=== PATIENT | male | born 1950 | race Caucasian/White ===

== ENCOUNTER 2021-11-29 12:38 | Inpatient (IN) | payer OTHER, SELFPAY ==
[2021-11-29] VITALS (60 sets, daily range): BP systolic 90–144; BP diastolic 50–113; PULSE 65–85; RESP 10–34; TEMP 35.8–36.6; O2SAT 91–98; BMI 41.7; BMI 43.0
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
[2021-11-29 12:55] LABS: Add Manual Diff / Slide Review NO; Basophils Absolute Auto 200 /uL (0-100); Basophils Percent Auto 1.3 % (0-2); Eosinophils Absolute Auto 900 /uL (0-450); Eosinophils Percent Auto 7.1 % (2-4); Hematocrit 47.5 % (41-53); Hemoglobin 16.2 g/dL (13.5-17.5); Lymphocytes Absolute Auto 4200 /uL (1100-4500); Lymphocytes Percent Auto 33.2 % (25-40); Mean Corpuscular HGB Conc 34.1 % (30-36); Mean Corpuscular Hemoglobin 29.7 PG (26-34); Mean Corpuscular Volume 87.3 fL (80-100); Monocytes Absolute Auto 700 /uL (0-900); Monocytes Percent Auto 5.7 % (3-14); Neutrophils Absolute Auto 6700 /uL (1500-7000); Neutrophils Percent Auto 52.7 % (50-75); Platelet Count 316 X10^3/uL (150-400); Red Blood Cell Count 5.44 X10^6/uL (4.5-5.9); Red Cell Distribution Width 14.8 % (11.6-14.8); White Blood Cell Count 12.7 X10^3/uL (4.5-11.0)
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
[2021-11-29 13:06] LABS: Prothrombin Time 11.7 SECONDS (10.1-12.7)
[2021-11-29 13:08] LABS: PTT Partial Thromboplastin Tim 27 SECONDS (26-36)
[2021-11-29 13:12] LABS: Alanine Aminotransferase 36 IU/L (<50); Albumin 4.5 g/dL (3.5-5.0); Albumin Globulin Ratio 1.5 (1.0-2.8); Alkaline Phosphatase 59 U/L (38-126); Aspartate Aminotransferase 30 IU/L (17-59); BUN Creatinine Ratio 16.4 (6-22); Bilirubin Total 1.1 mg/dL (0.2-1.3); Blood Urea Nitrogen 24 mg/dL (9-20); Calcium 9.4 mg/dL (8.4-10.2); Carbon Dioxide 22 mmol/L (22-32); Chloride 104 mmol/L (98-107); Creatine Kinase 83 U/L (55-170); Estimated Glomerular Filt Rate 50 mL/min (>60); Ethanol (ETOH) < 10 mg/dL; Globulin 3.1 g/dL (1.7-4.1); Glucose 159 mg/dL (80-110); HEMOLYSIS < 15 (0-50); Lipase 131 U/L (23-300); Sodium 140 mmol/L (137-145); Total Protein 7.6 g/dL (6.3-8.2)
[2021-11-29 13:13] LABS: COVID19 -Nasal RAPID Negative (Negative)
[2021-11-29 13:20] LABS: NT-proBNP (BNP-Adult 18+) 87 pg/mL (<125)
[2021-11-29 13:22] LABS: Troponin I < 0.012 ng/mL (0.01-0.034)
[2021-11-29] MEDS: SODIUM CHLORIDE 0.9% 1,000 ML 150 ML IV (13:45)
[2021-11-29] MEDS: SODIUM CHLORIDE 0.9% 500 ML 1000 ML IV (14:00)
--- NOTE | 2021-11-29 14:14 | PC.NURSE ---
Pt's friend/contact Myla Isabel: [phone]
[2021-11-29] MEDS: TRAMADOL 50 MG TABLET 100 MG PO (14:20)
[2021-11-29 14:48] LABS: Reflexed Lactate in 2 Hours Y
[2021-11-29 14:53] LABS: Lactate (Lactic Acid) 1.8 mmol/L (0.7-2.1)
[2021-11-29 15:05] LABS: Troponin I < 0.012 ng/mL (0.01-0.034)
[2021-11-29 16:16] LABS: Appearance Urine UA CLEAR; Bilirubin Urine UA NEGATIVE (NEGATIVE); Color Urine UA YELLOW; Glucose Urine UA NEGATIVE (Negative); Ketones Urine UA NEGATIVE (NEGATIVE); Leukocyte Esterase Urine UA NEGATIVE (NEGATIVE); Nitrite Urine UA NEGATIVE (Negative); Occult Blood Urine UA TRACE-INTACT (Negative); Protein Urine UA NEGATIVE (Negative); Urobilinogen Urine UA 0.2 E.U./dL (0.2)
[2021-11-29 16:19] LABS: UR Morphine/Opiate cutoff 300 Negative (Negative); Ur Creatinine Normal (Normal); Ur Specific Gravity Normal (Normal); Urine Amphetamines Negative (Negative); Urine Barbiturates Negative (Negative); Urine Benzodiazepines Negative (Negative); Urine Cocaine Negative (Negative); Urine MDMA Negative (Negative); Urine Methadone Negative (Negative); Urine Methamphetamines Negative (Negative); Urine Oxycodone Negative (Negative); Urine Phencyclidine Negative (Negative); Urine Tricyclic Antidepressant Negative (Negative); Urine pH Normal (Normal)
--- NOTE | 2021-11-29 16:20 | PC.NURSE ---
Addendum entered by Zulay Suresh R.N. 11/29/21 16:25: Pt given yogurt, cheese, and sandwich to eat. Pt drinking water without issue. Original Note: report rec'd from RICHARD Walter. Pt reports feeling better. given paper scrubs and OOB to ambulate to bathroom with standby assist. Pt ambulated without issue, urine received and sent to lab. Pt arrived back to room, ride called, IV's removed and pt ready for DC after reassessment by Dr Shen. Pt states he was starting to get dizzy and feel diaphoretic. Assisted to lay supine and vitals taken, BP 133/73. HR 76. Glucose 118. Dr Shen made aware. No new orders at this time. Attempting new IV insertion.
[2021-11-29 16:49] LABS: RBC Urine 0-1/HPF (0-5/HPF)
[2021-11-29 16:50] LABS: Bacteria Urine None Seen; Culture Indicated Urine Cult Not Indicated; Squamous Epithelial Cell Urine 0-1 /HPF (0-5/HPF); WBC Urine None Seen (0-5/HPF)
[2021-11-29] MEDS: MORPHINE 2 MG/ML INJ IV (17:15)
[2021-11-29] MEDS: SODIUM CHLORIDE 0.9% 1,000 ML 100 ML IV (21:19)
[2021-11-29] MEDS: TRAMADOL 50 MG TABLET PO (21:23)
[2021-11-29 21:32] LABS: Magnesium 2.4 mg/dL (1.6-2.3)
[2021-11-29 21:37] LABS: Troponin I < 0.012 ng/mL (0.01-0.034)
[2021-11-29 21:46] LABS: Hemoglobin A1C% w Est Avg Glu 6.4 % (4.0-6.0)
[2021-11-30] VITALS (9 sets, daily range): BP systolic 133–149; BP diastolic 79–87; PULSE 60–85; RESP 16–19; TEMP 36–36.9; O2SAT 93–97
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
[2021-11-30 02:58] LABS: Add Manual Diff / Slide Review NO; Basophils Absolute Auto 0 /uL (0-100); Basophils Percent Auto 0.4 % (0-2); Eosinophils Absolute Auto 600 /uL (0-450); Eosinophils Percent Auto 5.4 % (2-4); Hematocrit 44.3 % (41-53); Hemoglobin 14.8 g/dL (13.5-17.5); Lymphocytes Absolute Auto 2900 /uL (1100-4500); Mean Corpuscular HGB Conc 33.3 % (30-36); Mean Corpuscular Hemoglobin 29.5 PG (26-34); Mean Corpuscular Volume 88.4 fL (80-100); Monocytes Absolute Auto 900 /uL (0-900); Monocytes Percent Auto 7.8 % (3-14); Neutrophils Absolute Auto 7400 /uL (1500-7000); Neutrophils Percent Auto 62.4 % (50-75); Platelet Count 247 X10^3/uL (150-400); Red Blood Cell Count 5.01 X10^6/uL (4.5-5.9); Red Cell Distribution Width 14.7 % (11.6-14.8); White Blood Cell Count 11.9 X10^3/uL (4.5-11.0)
[2021-11-30 03:06] LABS: Alanine Aminotransferase 34 IU/L (<50); Albumin 3.9 g/dL (3.5-5.0); Albumin Globulin Ratio 1.5 (1.0-2.8); Alkaline Phosphatase 41 U/L (38-126); Aspartate Aminotransferase 26 IU/L (17-59); BUN Creatinine Ratio 25.8 (6-22); Bilirubin Total 0.8 mg/dL (0.2-1.3); Blood Urea Nitrogen 25 mg/dL (9-20); Calcium 8.7 mg/dL (8.4-10.2); Carbon Dioxide 27 mmol/L (22-32); Chloride 104 mmol/L (98-107); Estimated Glomerular Filt Rate > 60 mL/min (>60); Globulin 2.6 g/dL (1.7-4.1); Glucose 113 mg/dL (80-110); HEMOLYSIS < 15 (0-50); Magnesium 2.4 mg/dL (1.6-2.3); Potassium 3.6 mmol/L (3.4-5.1); Sodium 138 mmol/L (137-145); Total Protein 6.5 g/dL (6.3-8.2)
[2021-11-30 03:18] LABS: Troponin I < 0.012 ng/mL (0.01-0.034)
[2021-11-30] MEDS: SODIUM CHLORIDE 0.9% 1,000 ML 100 ML IV (07:33)
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
--- NOTE | 2021-11-30 12:51 | DI.ECHO.S_ITS ---
[facility] +---------+ : : [address] : : : : [id number] : : : : Phone: [phone] Echocardiogram Report + + :Name: OSMAR LASSITER Study Date: 12/01/2021 Height: 70 in : :[facility] ReadingLocation: Weight: 299 lb : : Gender: Male BSA: 2.5 m2 : :: 1950 Age: 71 yrs BP: 142/79 mmHg: :Reason For Study: SYNCOPE WORKUP : :Ordering Physician: DENIA, : :PETE ALEGRE Performed By: Tona Dubon : :Referring: PETE LOZA MD : + + Interpretation Summary The left ventricle is normal in size and wall thickness. Left ventricular systolic function appears normal without focal wall motion abnormalities. The ejection fraction is estimated to be 60-65%. Diastolic parameters suggest a relaxation abnormality of the left ventricle, consistent with probable normal filling pressures. The right ventricle is normal in size and function. Both atria are normal in size. There is no significant valvular heart disease. The aortic root is normal size. Procedure: A two-dimensional transthoracic echocardiogram with color flow and Doppler was performed. The study quality was technically adequate. A contrast injection of Definity was performed to improve assessment of LV function. There is no prior echocardiogram noted for this patient. The patient was in sinus bradycardia with heart rates between 52-63 bpm during the exam. Left Ventricle: The left ventricle is normal in size and wall thickness. Left ventricular systolic function appears normal without focal wall motion abnormalities. The ejection fraction is estimated to be 60-65%. Diastolic parameters suggest a relaxation abnormality of the left ventricle, consistent with probable normal filling pressures. Right Ventricle: The right ventricle is normal in size and function. Atria: Both atria are normal in size. There is no Doppler evidence for an interatrial shunt. Mitral Valve: The mitral valve is normal in structure and function. There is trace mitral regurgitation. Aortic Valve: The aortic valve is trileaflet. The aortic valve opens well. There is no aortic valve stenosis. There is trace aortic regurgitation. Tricuspid Valve: The tricuspid valve is normal in structure and function. There is mild tricuspid regurgitation. Pulmonic Valve: The pulmonic valve leaflets are thin and pliable; valve motion is normal. There is trace pulmonic regurgitation. There is no significant valvular heart disease. Great Vessels: The aortic root is normal size. The dimensions of the ascending aorta are normal. The inferior vena cava was not well visualized. Pericardium/ Pleura There is no pericardial effusion. There is no pleural effusion. MMode/2D Measurements & Calculations LVIDd: 4.0 cm LVOT diam: 2.0 cm LVIDs: 2.9 cm Ao root diam: 3.4 cm FS: 27.9 % asc Aorta Diam: 3.5 cm IVSd: 0.85 cm Ao Arch Diam (Prox Trans): 3.3 cm LVPWd: 1.1 cm LV choi. diameter/BSA (cm/m^2): 1.6 LV sys. diameter/BSA (cm/m^2): 1.2 LA A2 area: 17.6 cm2 RA long axis: 5.8 cm LA A4 area: 16.3 cm2 RA area: 17.9 cm2 LA length (vol): 4.5 cm RA vol: 46.8 ml LA vol: 53.8 ml RA : 18.9 ml/m2 LA vol index: 21.7 ml/m2 RVD1 (basal): 3.9 cm RVD2 (mid): 3.5 cm TAPSE: 1.8 cm Doppler Measurements & Calculations Ao V2 max: 107.7 cm/sec LVOT Max Brian: 91.7 cm/sec Ao V2 mean: 74.6 cm/sec LV V1 max P.4 mmHg Ao max P.6 mmHg LV V1 VTI: 22.4 cm Ao mean P.5 mmHg CYDNEY(I,D): 2.9 cm2 Ao V2 VTI: 24.4 cm CYDNEY(V,D): 2.7 cm2 sev ratio: 0.92 CYDNEY indexed to BSA (cm^2/m^2): 1.2 MV E max brian: 63.2 cm/sec TR max brian: 243.1 cm/sec MV A max brian: 89.9 cm/sec TR max P.6 mmHg MV E/A: 0.70 PA pr(Accel): 25.9 mmHg Med Peak E' Brian: 6.0 cm/sec E/E' med: 10.5 Lat Peak E' Brian: 7.3 cm/sec E/E' lat: 8.7 E/e' average: 9.6 MV dec time: 0.24 sec SV(LVOT): 71.4 ml Reading Physician:10:10 AM
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
[2021-11-30] MEDS: POTASSIUM CHLORIDE 20 MEQ TAB 40 MEQ PO (21:38)
[2021-11-30] MEDS: ENOXAPARIN 40 MG/0.4 ML SYRINGE SUBCUT (21:38)
[2021-11-30] MEDS: SODIUM CHLORIDE 0.9% FLUSH 10 ML IV (21:42)
[2021-11-30] MEDS: allopurinoL 100 MG TABLET PO (22:02)
[2021-11-30] MEDS: ACETAMINOPHEN 325 MG TABLET 650 MG PO (23:11)
[2021-12-01] VITALS (23 sets, daily range): BP systolic 110–143; BP diastolic 58–83; PULSE 55–89; RESP 16–30; TEMP 36.2–36.9; O2SAT 92–96
[2021-12-01 05:57] LABS: Add Manual Diff / Slide Review NO; Basophils Absolute Auto 100 /uL (0-100); Basophils Percent Auto 1.5 % (0-2); Eosinophils Absolute Auto 1000 /uL (0-450); Eosinophils Percent Auto 10.1 % (2-4); Hematocrit 43.1 % (41-53); Hemoglobin 14.7 g/dL (13.5-17.5); Lymphocytes Absolute Auto 3200 /uL (1100-4500); Lymphocytes Percent Auto 33.3 % (25-40); Mean Corpuscular HGB Conc 34.1 % (30-36); Monocytes Absolute Auto 600 /uL (0-900); Monocytes Percent Auto 6.6 % (3-14); Neutrophils Absolute Auto 4700 /uL (1500-7000); Neutrophils Percent Auto 48.5 % (50-75); Platelet Count 227 X10^3/uL (150-400); Red Cell Distribution Width 14.6 % (11.6-14.8); White Blood Cell Count 9.6 X10^3/uL (4.5-11.0)
[2021-12-01 06:07] LABS: Chloride 104 mmol/L (98-107); HEMOLYSIS < 15 (0-50)
[2021-12-01 06:09] LABS: Alanine Aminotransferase 31 IU/L (<50); Albumin 3.6 g/dL (3.5-5.0); Albumin Globulin Ratio 1.3 (1.0-2.8); Alkaline Phosphatase 46 U/L (38-126); Aspartate Aminotransferase 25 IU/L (17-59); BUN Creatinine Ratio 22.2 (6-22); Bilirubin Total 0.6 mg/dL (0.2-1.3); Blood Urea Nitrogen 22 mg/dL (9-20); Calcium 8.8 mg/dL (8.4-10.2); Carbon Dioxide 27 mmol/L (22-32); Estimated Glomerular Filt Rate > 60 mL/min (>60); Globulin 2.8 g/dL (1.7-4.1); Glucose 109 mg/dL (80-110); Magnesium 2.1 mg/dL (1.6-2.3); Potassium 4.3 mmol/L (3.4-5.1); Sodium 137 mmol/L (137-145); Total Protein 6.4 g/dL (6.3-8.2)
[2021-12-01] MEDS: ACETAMINOPHEN 325 MG TABLET 650 MG PO (06:44)
[2021-12-01] MEDS: ASPIRIN EC 81 MG TABLET PO (09:25)
[2021-12-01] MEDS: SODIUM CHLORIDE 0.9% FLUSH 10 ML IV (09:25)
[2021-12-01] MEDS: allopurinoL 100 MG TABLET PO (09:25)
--- NOTE | 2021-12-01 10:46 | CM.DPC ---
DCP Cont: Per RN Coordinator, pt needing transfer to higher level of care due to pt needing a pacemaker. DCP available if any assistance is needed. Rand Wright, RN/DCP
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
[2021-12-01] MEDS: AMIODARONE 150 MG/100 ML 600 MG IV (16:29)
[2021-12-01] MEDS: AMIODARONE 360 MG/200 ML PIGGYBACK 33.333 MG IV (16:30)
[2021-12-01] MEDS: SODIUM CHLORIDE 0.9% 250 ML 21 ML IV (16:39)
--- NOTE | 2021-12-01 16:51 | PC.NURSE ---
1615 Pt moved from room 222 to room 228 in ICU to be placed on Amiodarone gtt and monitored closely. VSS, A/Ox 4, oriented to room and call light system. Will continue to monitor
[2021-12-01] MEDS: ENOXAPARIN 40 MG/0.4 ML SYRINGE SUBCUT (20:17)
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
[2021-12-01] MEDS: AMIODARONE 540 MG/300 ML PIGGYBACK 16.7 MG IV (22:34)
[2021-12-02] VITALS (21 sets, daily range): BP systolic 110–137; BP diastolic 58–84; PULSE 50–80; RESP 13–27; TEMP 36.5–36.9; O2SAT 92–99
[2021-12-02] MEDS: SODIUM CHLORIDE 0.9% 250 ML 21 ML IV (04:58)
--- NOTE | 2021-12-02 05:57 | PC.NURSE ---
Patient has been resting in bed most of the shift. Up a couple of times to the bathroom, and also uses the urinal. Patient on final loading dose of Amiodearone 540mg/300ml running at 16.7ml/hr. No runs of Vtech noted during night. Patient has been NSR/NSB w/rest heart rate down to mid 40s at times. Patient has denied any chest discomfort, feeling dizzy or lightheaded. Patient has been A&O, calm and cooperative.
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
[2021-12-02] MEDS: allopurinoL 100 MG TABLET PO (08:59)
[2021-12-02] MEDS: ASPIRIN EC 81 MG TABLET PO (08:59)
[2021-12-02] MEDS: lisinopriL 10 MG TABLET PO (08:59)
[2021-12-02] MEDS: AMIODARONE 200 MG TABLET 400 MG PO (09:00)
[2021-12-02] MEDS: ENOXAPARIN 40 MG/0.4 ML SYRINGE SUBCUT (09:00)
[2021-12-02] MEDS: SODIUM CHLORIDE 0.9% FLUSH 10 ML IV (09:07)
--- NOTE | 2021-12-02 09:35 | PM.PN.EICU ---
Subjective Subjective IF CAMERA ACTIVATED, patient seen via real-time interactive audiovisual communication: Camera activated Date Patient Seen: 12/02/21 Consent obtained for tele-ordnance equipment worker care: Yes Patient Location: ICU Provider location (State): [place] Other participants/roles: RICHARD Cottrell Interval history: No runs of VT since he was placed on amiodarone infusion. Had an episode of asymptomatic bradycardia to the 40s overnight. On amiodarone infusion and started on oral amiodarone. Awaiting for transfer to tertiary care for further cardiac evaluation. Current Medications Current Medications Medications: Home Medications allopurinol 100 mg tablet 100 mg PO DAILY 11/29/21 [History Confirmed 11/29/21] aspirin 81 mg capsule 81 mg PO DAILY 11/29/21 [History Confirmed 11/29/21] lisinopril 10 mg-hydrochlorothiazide 12.5 mg tablet 1 tab PO DAILY 11/29/21 [History Confirmed 11/29/21] metformin 500 mg tablet 500 mg PO DAILY 11/29/21 [History Confirmed 11/29/21] Visit Medications (administered) Generic Name Dose Route Start Last Admin Trade Name Freq PRN Reason Stop Dose Admin Acetaminophen 650 mg 11/29/21 20:37 12/01/21 06:44 Acetaminophen 325 Mg Tablet PO 650 mg Q6HR PRN Administration Fever/Mild Pain (1-3) Allopurinol 100 mg 11/30/21 22:00 12/02/21 08:59 Allopurinol 100 Mg Tablet PO 100 mg DAILY TREVON Administration Amiodarone HCl 400 mg 12/02/21 09:00 12/02/21 09:00 Amiodarone 200 Mg Tablet PO 12/08/21 21:01 400 mg BID TREVON Administration Aspirin 81 mg 12/01/21 09:00 12/02/21 08:59 Aspirin Ec 81 Mg Tablet PO 81 mg DAILY TREVON Administration Enoxaparin Sodium 40 mg 11/30/21 09:00 12/02/21 09:00 Enoxaparin 40 Mg/0.4 Ml Syringe SUBCUT 40 mg BID TREVON Administration Amiodarone HCl/Dextrose 540 mg in 300 mls @ 16.7 mls/hr 12/01/21 20:10 12/01/21 22:34 Nexterone IV 12/02/21 14:08 16.7 mls/hr CONT TREVON Administration Protocol Sodium Chloride 250 mls @ 21 mls/hr 12/01/21 16:19 12/02/21 04:58 Normal Saline 0.9% IV 21 mls/hr Q24H PRN Administration Flush Insulin Human Lispro 0 unit 11/30/21 07:45 12/02/21 07:24 Insulin Lispro 100 Unit/Ml 3ml Vial SUBCUT Not Given ACHS TREVON Protocol Lisinopril 10 mg 12/01/21 09:00 12/02/21 08:59 Lisinopril 10 Mg Tablet PO 10 mg DAILY TREVON Administration Sodium Chloride 10 ml 11/30/21 21:00 12/02/21 09:07 Sodium Chloride 0.9% Flush IV 10 ml BID TREVON Administration Tramadol HCl 50 mg 11/29/21 20:37 11/29/21 21:23 Tramadol 50 Mg Tablet PO 50 mg Q4H PRN Administration Pain, Moderate (4-6) Objective Labs Result Diagrams: 12/01/21 05:23 12/01/21 05:23 Labs: Laboratory Results - last 24 hr 11/29/21 16:00 U Marijuana (THC) Screen TNP Exam Vital Signs (past 8 hours): - 12/02/21 03:07 12/02/21 04:00 12/02/21 08:00 Temperature 97.7 F 98.5 F Pulse Rate 58 L 57 L Respiratory Rate 15 13 Blood Pressure 131/76 137/74 Pulse Oximetry 97 96 97 Oxygen Delivery Method Room Air Oxygen Flow Rate 0 12/02/21 08:59 Temperature Pulse Rate 75 Respiratory Rate Blood Pressure 137/74 Pulse Oximetry Oxygen Delivery Method Oxygen Flow Rate Oxygen Delivery Method Room Air Oxygen Flow Rate 0 Quality TeleICU VTE Deep Vein Thrombosis/Pulmonary Embolism Present on Admission: No Assessment & Plan Assessment & Plan narrative: NEURO: -- Seek early mobility RESP: -- On room air -- Encourage IS and OOB CVS: # Gabriel-tachy syndrome -- Per report patient had multiple runs of VT and developed bradycardia overnight -- Pacer pads in place -- On amiodarone infusion -- Pending transfer to tertiary care for EP evlauation for potential pacemaker and ICD placement -- High lytes goal -- Goal Mg > 2, K>4, and phos >3 ENDO: # DM -- On ISS -- Goal BS < 180 D/w RN Ronit at bedside. Time Spent With Patient Critical Care time: I spent a total of [32] minutes of critical care time on this patient's care today; this time is exclusive of procedural time.
[2021-12-02 10:16] LABS: Add Manual Diff / Slide Review NO; Basophils Absolute Auto 100 /uL (0-100); Basophils Percent Auto 0.8 % (0-2); Eosinophils Absolute Auto 800 /uL (0-450); Eosinophils Percent Auto 7.6 % (2-4); Hematocrit 46.6 % (41-53); Hemoglobin 16.1 g/dL (13.5-17.5); Lymphocytes Absolute Auto 2300 /uL (1100-4500); Lymphocytes Percent Auto 23.2 % (25-40); Mean Corpuscular HGB Conc 34.6 % (30-36); Mean Corpuscular Hemoglobin 30.3 PG (26-34); Mean Corpuscular Volume 87.6 fL (80-100); Monocytes Absolute Auto 400 /uL (0-900); Monocytes Percent Auto 3.8 % (3-14); Neutrophils Absolute Auto 6500 /uL (1500-7000); Neutrophils Percent Auto 64.6 % (50-75); Platelet Count 265 X10^3/uL (150-400); Red Blood Cell Count 5.32 X10^6/uL (4.5-5.9); Red Cell Distribution Width 14.7 % (11.6-14.8); White Blood Cell Count 10.1 X10^3/uL (4.5-11.0)
[2021-12-02] MEDS: AMIODARONE 540 MG/300 ML PIGGYBACK 16.7 MG IV (10:19)
[2021-12-02 10:37] LABS: Albumin 4.3 g/dL (3.5-5.0); BUN Creatinine Ratio 15.4 (6-22); Blood Urea Nitrogen 18 mg/dL (9-20); Calcium 9.5 mg/dL (8.4-10.2); Carbon Dioxide 28 mmol/L (22-32); Chloride 104 mmol/L (98-107); Estimated Glomerular Filt Rate > 60 mL/min (>60); Glucose 153 mg/dL (80-110); HEMOLYSIS < 15 (0-50); Magnesium 2.1 mg/dL (1.6-2.3); Phosphorous 3.1 mg/dL (2.3-3.7); Potassium 4.2 mmol/L (3.4-5.1); Sodium 140 mmol/L (137-145)
--- NOTE | 2021-12-02 18:40 | PC.NURSE ---
Pt transferring to [facility] unit [address], report called to nurse . Ambulance to arrive at 1900, VSS, PIV SL, pt notified of transfer.
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
== END 2021-12-02 19:17 | disposition short-term general hospital (02) | DRG 308 ==
LOC: ED 16:49 → AC 17:00 → ICU 12-01 16:26
PROVIDERS: Internal Medicine Pulmonary Disease; Nurse Practitioner Family; Admitting Provider Neuromusculoskeletal Medicine, Sports Medicine; Emergency Provider Emergency Medicine; PCP Physician Assistant Medical; Referring Provider Emergency Medicine; Visit Provider Neuromusculoskeletal Medicine, Sports Medicine
DX: I49.5 Sick sinus syndrome (principal); I49.01 Ventricular fibrillation; I47.2 Ventricular tachycardia; N17.9 Acute kidney failure, unspecified; E66.01 Morbid (severe) obesity due to excess calories; F17.290 Nicotine dependence, other tobacco product, uncomplicated; E11.9 Type 2 diabetes mellitus without complications; I10 Essential (primary) hypertension; S20.211A Contusion of right front wall of thorax, initial encounter; V89.2XXA Person injured in unspecified motor-vehicle accident, traffic, initial encounter; Y92.488 Other paved roadways as the place of occurrence of the external cause; Z20.822 Contact with and (suspected) exposure to COVID-19; Z68.39 Body mass index [BMI] 39.0-39.9, adult; Z79.84 Long term (current) use of oral hypoglycemic drugs
CPT/HCPCS: 36415; 36592; 70450; 71045; 71260; 72125; 72170; 74177; 80053; 80069; 80305; 80320; 81001; 82550; 82962; 83036; 83605; 83690; 83735; 83880; 84484; 85025; 85610; 85730; 86850; 86900; 86901; 87635; 93005; 93306; 96374; 97161; 99285; 99291; 99292; C9803; G0378; G0390; J0282; J1650; J1815; J2270; Q9957; Q9967

== ENCOUNTER → 2023-10-08 09:23 | Outpatient (CLI) | payer OTHER, SELFPAY ==
[2021-11-29 20:26] VITALS: BMI 43.0
== END ==
LOC: LAB 09:26
PROVIDERS: PCP Physician Assistant Medical; Referring Provider Orthopaedic Surgery; Visit Provider Orthopaedic Surgery
DX: Z01.818 Encounter for other preprocedural examination (principal)
CPT/HCPCS: 80323